=== PATIENT | male | born 1960 | race African-American/Black ===

== ENCOUNTER → 2019-01-03 | Outpatient (CLI) | payer OTHER | END | disposition home or self-care (01) | LOC: CVU 07:20 | PROVIDERS: ATTEND Internal Medicine Cardiovascular Disease | DX: I10 Essential (primary) hypertension (principal); R94.31 Abnormal electrocardiogram [ECG] [EKG] | CPT/HCPCS: 0399T; 78452; 93017; 93306; A9502 ==

== ENCOUNTER 2019-06-27 10:38 | Emergency (ER) | payer OTHER ==
[~2019-06-27] VITALS: Ht 170.2 cm; Wt 63.0 kg
--- NOTE | 2019-06-27 11:07 | NUR ---
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
--- NOTE | 2019-06-27 11:15 | NUR ---
PT STATES HE HAD A 20MIN EPISODE OF TIGHTNESS IN CHEST AND SOB. PT DENIES BOTH AT THIS TIME. HE TOOK HIS BP AND SYSTOLIC 190. PT TO BP, CARD MONITOR, CONT PULSE OX
--- NOTE | 2019-06-27 11:50 | NUR ---
LAB IN TO DRAW PT, DX CHEST COMPLETED
--- NOTE | 2019-06-27 12:03 | NUR ---
BREAK RN FOR PRIMARY RN VIVIAN. PT RESTING IN POSITION OF COMFORT. DENIES ANY CP, SOB, OR PAIN. PROVIDED WARM BLANKET FOR COMFORT. AWAITING LAB RESULTS AND RECHECK. DENIES NEED TO USE RESTROOM. VSS. SB ON MONITOR. FALL PRECAUTIONS IN PLACE. CALL LIGHT IN REACH. ALL NEEDS MET AND ADDRESSED.
[2019-06-27 12:09] LABS: ALBUMIN 3.6 g/dL (3.4-5.0); ANION GAP 3 mmol/L (5-15); CHLORIDE 107 mmol/L (98-107)
[2019-06-27 12:16] LABS: BASOPHILS # (AUTO) 0.03 x10^3/uL (0-0.1); BASOPHILS % (AUTO) 1 % (0-1); EOSINOPHILS # (AUTO) 0.27 x10^3/uL (0-0.4); EOSINOPHILS % (AUTO) 4 % (1-7); LYMPHOCYTES % (AUTO) 24 % (22-44); MD NO; MEAN CORPUSCULAR HEMOGLOBIN 30.3 pg (27.5-34.5); MEAN CORPUSCULAR HGB CONC 32.9 g/dL (33.2-36.2); MEAN CORPUSCULAR VOLUME 92.3 fL (81-97); MEAN PLATELET VOLUME 8.1 fL (7.4-10.4); MONOCYTES # (AUTO) 0.38 x10^3/uL (0.2-0.8); MONOCYTES % (AUTO) 6 % (2-9); NEUTROPHILS # (AUTO) 4.02 x10^3/uL (1.8-6.8); NEUTROPHILS % (AUTO) 65 % (42-75); PLATELET COUNT 153 x10^3/uL (130-400); RED BLOOD COUNT 5.27 x10^6/uL (4.38-5.82); RED CELL DISTRIBUTION WIDTH 13.2 % (9.4-14.8)
[2019-06-27 12:17] LABS: ALANINE AMINOTRANSFERASE 24 U/L (12-78); ALKALINE PHOSPHATASE 102 U/L (45-117); BILIRUBIN,TOTAL 0.8 mg/dL (0.2-1.0); CREATININE 1.32 mg/dL (0.7-1.3); TOTAL PROTEIN 7.1 g/dL (6.4-8.2); TROPONIN I < 0.015 ng/mL (0.000-0.045)
--- NOTE | 2019-06-27 12:31 | NUR ---
BREAK RN. REPORT AND CARE BACK TO PRIMARY BORIS PARK AT THIS TIME.
--- NOTE | 2019-06-27 12:48 | NUR ---
PT RESTING ON VIJAY, VSS, PLACED FOR RECHECK
[2019-06-27 13:46] VITALS: BP 151/70
== END 2019-06-27 13:49 | disposition home or self-care (01) ==
LOC: ED 13:43
DX: I10 Essential (primary) hypertension (principal); R06.00 Dyspnea, unspecified; R07.89 Other chest pain; E78.5 Hyperlipidemia, unspecified; E78.00 Pure hypercholesterolemia, unspecified
CPT/HCPCS: 71046; 80053; 82962; 83880; 84484; 85025; 93005; 99284

== ENCOUNTER 2020-08-07 20:30 | Emergency (ER) | payer OTHER ==
[~2020-08-07] VITALS: Ht 170.2 cm; Wt 62.0 kg
--- NOTE | 2020-08-07 20:49 | NUR ---
APPLICATIONS SYSTEMS ENGINEER: URINE TUBED TO LAB
[2020-08-07] MEDS ORDERED: SODIUM CHLORIDE FLUSH 10ML SYR IVF ONE (21:00)
[2020-08-07 21:15] LABS: BASOPHILS % (AUTO) 1 % (0-1); EOSINOPHILS % (AUTO) 5 % (1-7); LYMPHOCYTES % (AUTO) 25 % (22-44); MEAN CORPUSCULAR HEMOGLOBIN 31.2 pg (27.5-34.5); MEAN CORPUSCULAR HGB CONC 33.6 g/dL (33.2-36.2); MEAN PLATELET VOLUME 8.3 fL (7.4-10.4); MONOCYTES % (AUTO) 8 % (2-9); NEUTROPHILS % (AUTO) 61 % (42-75); PLATELET COUNT 157 x10^3/uL (130-400); RED BLOOD COUNT 5.12 x10^6/uL (4.38-5.82); RED CELL DISTRIBUTION WIDTH 13.3 % (9.4-14.8)
[2020-08-07 21:16] LABS: MD NO
[2020-08-07 21:21] LABS: ALANINE AMINOTRANSFERASE 27 U/L (12-78); ANION GAP 6 mmol/L (5-15); CHLORIDE 105 mmol/L (98-107); CREATININE 1.43 mg/dL (0.7-1.3)
[2020-08-07 21:23] LABS: ALKALINE PHOSPHATASE 131 U/L (45-117); BILIRUBIN,TOTAL 0.6 mg/dL (0.2-1.0); TOTAL PROTEIN 7.8 g/dL (6.4-8.2)
--- NOTE | 2020-08-07 21:27 | NUR ---
PATIENT WHEELED BACK FROM TRIAGE WITH CHIEF C/O LLQ ABD PAIN THAT STARTED SOMETIME AFTER MIDNIGHT THIS MORNING. PATIENT DENIES N/V/D, LAST BM TODAY, PATIENT DENIES PAIN WITH URINATION. CLAUDIA REYNOLDS, FAMILY MEMBER AT BEDSIDE. Addendum: 08/07/20 at 2131 by [email or web address] PATIENT STATES HE TOOK TYLENOL AND IT HELPED THE PAIN, BUT THEN THE PAIN CAME BACK. PAIN RADIATES TO LEFT SIDE OF BACK.
--- NOTE | 2020-08-07 21:29 | NUR ---
ERMD AT BEDSIDE FOR EVALUATION.
[2020-08-07 21:48] LABS: MICROSCOPIC AUTO
[2020-08-07] MEDS ORDERED: OXYcodone/APAP 5/325MG TABLET ONE (22:06)
--- NOTE | 2020-08-07 22:12 | NUR ---
PATIENT MEDICATED PER GAIL Silva, CLAUDIA, SIGNIFICANT OTHER AT BEDSIDE. Addendum: 08/07/20 at 2213 by [email or web address] CALL LIGHT WITHIN REACH.
--- NOTE | 2020-08-07 22:17 | NUR ---
SPOKE WITH LAB, URINE SAMPLE HAS BEEN PENDING RESULTS SINCE 2044. STRIP CUTTING MACHINE OPERATOR RELEASED URINE RESULTS.
[2020-08-07] MEDS ORDERED: OXYcodone/APAP 5/325MG TABLET PO ONE (22:30)
[2020-08-07] MEDS ORDERED: KETOROLAC 30 MG/1 ML ONE (22:46)
[2020-08-07 23:00] VITALS: BP 162/67
[2020-08-07] MEDS ORDERED: KETOROLAC 30 MG/1 ML IM ONE (23:00)
[2020-08-09] MEDS ORDERED: BENA20TA5 PO (01:43)
[2020-08-09] MEDS ORDERED: CLON0.1T2 PO (01:49)
[2020-08-09] MEDS ORDERED: METF500T17 PO (01:49)
[2020-08-09] MEDS ORDERED: ATOR20TA86 PO (01:49)
[2020-08-09] MEDS ORDERED: AMLO-210 PO (01:49)
[2020-08-09] MEDS ORDERED: CARV6.25 PO (01:49)
== END 2020-08-07 23:16 | disposition home or self-care (01) ==
LOC: ED 21:47
DX: N20.1 Calculus of ureter (principal); R10.32 Left lower quadrant pain; M54.5 Low back pain; I10 Essential (primary) hypertension; E78.00 Pure hypercholesterolemia, unspecified
CPT/HCPCS: 36415; 74176; 80053; 81001; 83690; 85025; 96372; 99284; J1885

== ENCOUNTER 2021-04-17 09:27 | Outpatient (CLI) | payer OTHER ==
[~2021-04-17 09:27] MED LIST: AMLO-210 PO; ATOR20TA86 PO; BENA20TA5 PO; CARV6.25 PO; CEFD300C37 PO; CLON0.1T2 PO; METF500T17 PO; OXYC5TAB98 PO; PHEN-583 PO; POLY17PO5 PO
== END 2021-04-17 23:59 | disposition home or self-care (01) ==
LOC: CFH 09:27
PROVIDERS: ATTEND Internal Medicine Cardiovascular Disease
DX: I35.8 Other nonrheumatic aortic valve disorders (principal); I10 Essential (primary) hypertension; E78.5 Hyperlipidemia, unspecified; R94.31 Abnormal electrocardiogram [ECG] [EKG]
CPT/HCPCS: 93306; 93356